=== PATIENT | male | born 1975 | race African-American/Black ===

== ENCOUNTER 2019-06-15 16:08 | Emergency (ER) | payer BC, SELFPAY ==
[2019-06-15 16:35] VITALS: BP 163/88; PULSE 67; RESP 20; TEMP 36.6; O2SAT 100
--- NOTE | 2019-06-15 17:23 | ED.ABDPAIN ---
HPI - Abdominal Pain General Chief Complaint: Back Pain/Injury Stated Complaint: painful urination and side pain Time Seen by Provider: 06/15/19 17:23 Source: patient Mode of arrival: ambulatory Limitations: no limitations History of Present Illness HPI narrative: Ron López is a 43 yo with no PMH complaining of right lower back pain and some difficulty with urination. He states that he has some feeling of burning post urination but was just checked for STDs and so they are negative it is not as concerned about that as he is his lower back pain on the right, seems to be positional in terms of eliciting pain has been going on for weeks Related Data Allergies Allergy/AdvReac Type Severity Reaction Status Date / Time No Known Allergies Allergy Verified 06/15/19 17:29 Review of Systems Review of Systems: Narrative: CONSTITUTIONAL: Denies fever, chills, sweats. EYES: Denies visual changes, redness, discharge. ENT: Denies rhinorrhea, congestion, sore throat, otalgia. CARDIOVASCULAR: Denies chest pain, palpitations, edema. RESPIRATORY: Denies dyspnea, wheezing, cough GASTROINTESTINAL: Denies abdominal pain, nausea, vomiting, diarrhea. GENITOURINARY: mild dysuria, hematuria, abnormal discharge SKIN: Denies rash or itching. MUSCULOSKELETAL: back pain, joint pain, or myalgia. NEUROLOGIC: Denies numbness, or focal weakness. PSYCHIATRIC: Denies anxiety or depression. [facility] Social History Social History (Updated 06/15/19 @ 17:38 by Lissa Sweeney CNP) Smoking status: Never smoker Alcohol intake: current Comments At time of signature, I agree with nursing past medical, surgical, social and family history. There is no relevant family history pertinent to the presenting complaint. Denies any family or prior medical history Exam Narrative: Exam Narrative: GENERAL: This is a well-nourished, well-developed patient, in mild discomfort. HEAD: normocephalic, atraumatic. EYES: Sclera clear/white. Vision is grossly intact. EARS: External ears normal, auditory canals clear and without drainage, TMs normal without perforation. Hearing grossly intact. NOSE: External nose normal with no obvious nasal discharge, nares without redness, no rhinorrhea. THROAT: Mucous membranes moist, posterior pharynx clear. NECK: Neck supple, non-tender without lymphadenopathy, masses or thyromegaly. CARDIOVASCULAR: Regular rate and rhythm without murmurs, gallops, or rubs. RESPIRATORY: Clear to auscultation. Breath sounds equal bilaterally. No wheezes, rales, or rhonchi. GASTROINTESTINAL: Abdomen soft, non-tender, nondistended. Bowel sounds are active. No hepato-splenomegaly, or palpable masses. No guarding. SKIN: warm, intact with no suspicious lesions or rash, good texture and turgor. NEURO: awake, alert, and oriented to person, place and time. There were no obvious focal neurologic abnormalities. Steady gait EXTREMITIES: Normal range of motion. No edema. BACK: tender R lower back- without deformity . Course Course Emergency Course: Given Toradol here Started on prednisone [id number] with primary care physician about trace blood in urine (states was tested last month for STDs and everything was clear; no new partners) Vital Signs Vital signs: Vital Signs Temperature 97.9 F 06/15/19 16:35 Pulse Rate 67 06/15/19 16:35 Respiratory Rate 20 06/15/19 16:35 Blood Pressure 163/88 H 06/15/19 16:35 Pulse Oximetry 100 06/15/19 16:35 Temperature 97.9 F 06/15/19 16:35 Pulse Rate 67 06/15/19 16:35 Respiratory Rate 20 06/15/19 16:35 Blood Pressure 163/88 H 06/15/19 16:35 Pulse Oximetry 100 06/15/19 16:35 MDM - Abdominal Pain Differential Diagnosis Differential diagnosis: Likely other (Skeletal muscle pain) Lab Data Labs: Urine Glucose Negative Reference Range: Negative Urine Bilirubin Negative Reference Range: Negative Urine Ketone Ne
[2019-06-15] MEDS: KETOROLAC (*BKC) 60 MG/2 ML VIAL IM (17:49)
== END 2019-06-15 18:20 | disposition home or self-care (01) ==
PROVIDERS: Emergency Provider Nurse Practitioner
DX: S39.012A Strain of muscle, fascia and tendon of lower back, initial encounter (principal); X58.XXXA Exposure to other specified factors, initial encounter; J45.909 Unspecified asthma, uncomplicated; K21.9 Gastro-esophageal reflux disease without esophagitis
CPT/HCPCS: 81003; 87086; 96372; 99203; G0463; J1885

== ENCOUNTER 2019-06-26 10:33 | Emergency (ER) | payer BC, SELFPAY ==
[2019-06-26 10:50] VITALS: BP 137/82; PULSE 63; RESP 16; TEMP 37.2; O2SAT 99
--- NOTE | 2019-06-26 10:50 | ED.MALEGU ---
HPI - Male Genitourinary General Chief complaint: Urogenital-Male Stated complaint: Constipated/Pos UTI Time Seen by Provider: 06/26/19 10:50 Source: patient and RN notes reviewed History of Present Illness HPI Narrative: Patient is a 43-year-old male that presents the urgent care with complaints of low back pain, burning after urination, and intermittent stomach cramps. Patient states that he believes that the back pain and intermittent stomach cramping is because he is gassy . Patient was seen on June 15 and given steroids for his low back pain. Patient states that that pain has improved . Patient states it is not difficult to bend over or twist anymore like it had been. Patient states that he thinks he needs antibiotics this time because it must be a urinary infection. Patient denies fever, nausea, vomiting. No other acute complaints. No acute distress noted. Patient read the plan of care. Related Data Allergies Allergy/AdvReac Type Severity Reaction Status Date / Time No Known Allergies Allergy Verified 06/26/19 10:58 Review of Systems Review of Systems: Narrative: CONSTITUTIONAL: Denies fever, chills, or sweats. EYES: Denies visual changes, redness, or discharge. ENT: Denies rhinorrhea, congestion, sore throat, or otalgia. CARDIOVASCULAR: Denies chest pain, palpitations, or edema. RESPIRATORY: Denies cough or dyspnea. GASTROINTESTINAL: Reports of intermittent abdominal cramping without nausea, vomiting, diarrhea GENITOURINARY: Reports of dysuria and changes in urinary flow SKIN: Denies rash or itching. MUSCULOSKELETAL: Reports of mild low back pain NEUROLOGIC: Denies headache, numbness, or weakness. All other systems reviewed are negative, except as documented in HPI. PMFSH Social History Social History (Updated 06/15/19 @ 17:38 by Lissa Sweeney CNP) Smoking status: Never smoker Alcohol intake: current Comments At the time of my signature, I reviewed and agree with the nursing past medical, surgical, social, and family history. There is no relevant family history pertinent to the patient complaint. Exam Narrative: Exam Narrative: GENERAL: This is a well-nourished, well-developed patient, in no apparent distress. HEAD: normocephalic, atraumatic. EYES: PERRL. Sclera clear/white. Vision is grossly intact. EARS: External ears normal NOSE: External nose normal with no obvious nasal discharge THROAT: Mucous membranes moist NECK: Neck supple CARDIOVASCULAR: Regular rate and rhythm without murmurs, gallops, or rubs. RESPIRATORY: Clear to auscultation. Breath sounds equal bilaterally. No wheezes, rales, or rhonchi. GASTROINTESTINAL: Abdomen soft, non-tender, nondistended. Bowel sounds are active. SKIN: warm, intact with no suspicious lesions or rash, good texture and turgor. NEURO: awake, alert, and oriented to person, place and time. There were no obvious focal neurologic abnormalities. EXTREMITIES: No clubbing, cyanosis, or edema. BACK: Negative bilateral CVA tenderness Course Vital Signs Vital signs: Vital Signs Temperature 99.0 F 06/26/19 10:50 Pulse Rate 63 06/26/19 10:50 Respiratory Rate 16 06/26/19 10:50 Blood Pressure 137/82 06/26/19 10:50 Pulse Oximetry 99 06/26/19 10:50 Temperature 99.0 F 06/26/19 10:50 Pulse Rate 63 06/26/19 10:50 Respiratory Rate 16 06/26/19 10:50 Blood Pressure 137/82 06/26/19 10:50 Pulse Oximetry 99 06/26/19 10:50 Reviewed MDM - Male Genitourinary MDM Narrative Medical decision making narrative: Reviewed urine analysis results with the patient. He is aware that urine analysis showed trace bacteria and trace blood. I will treat the patient for possible urinary tract infection but also to cover possible epididymitis/prostatitis. Advised the patient to complete the antibiotic regimen as prescribed, unless otherwise directed from PCP to stop the medication. . He should follow-up as scheduled with his PCP on July 02 and let him
== END 2019-06-26 11:29 | disposition home or self-care (01) ==
PROVIDERS: Emergency Provider Nurse Practitioner Family
DX: N39.0 Urinary tract infection, site not specified (principal); J45.909 Unspecified asthma, uncomplicated; K21.9 Gastro-esophageal reflux disease without esophagitis
CPT/HCPCS: 81003; 87086; 99213; G0463

== ENCOUNTER 2019-07-03 08:45 | Outpatient (CLI) | payer BC, SELFPAY ==
--- NOTE | ~2019-07-03 | XR_ITS ---
XR abdomen/kub 1V DATE: 07/03/2019 09:25 INDICATION: Abdominal pain, lower back pain. No injury. TECHNIQUE: AP projection, 2 views COMPARISON: None FINDINGS: The lung bases are clear. Heart size appears normal. No pleural effusion is evident. The bowel gas pattern is nonspecific, with some borderline or minimally dilated gas containing small bowel overlying the mid abdomen. Mild adynamic ileus is suggested. However, no apparent bowel obstruc tion is noted. No visceromegaly or significant abnormal calcification. IMPRESSION: Mild adynamic ileus is suggested. No apparent bowel obstruction Reviewed, dictated and finalized at [facility]. Reviewed, dictated and finalized at location [facility]. T REPAIRER
--- NOTE | ~2019-07-03 | XR_ITS ---
XR lumbar spine 6V w bending DATE: 07/03/2019 09:25 INDICATION: Low back pain without injury TECHNIQUE: AP, lateral, bilateral oblique and coned lateral lumbosacral views. Flexion and extension lateral views. COMPARISON: None FINDINGS: There is normal alignment of the lumbar spine. No fracture or bone destruction, spondylolys is or spondylolisthesis is evident. There is no instability on flexion or extension. There is moderate degenerative disc disease at L2-3, L3-4 and L4-5. The sacroiliac joints are unremarkable. IMPRESSION: Multilevel moderate degenerative disc disease Reviewed, dictated and finalized at location [facility]. [employer]
[2019-07-03 17:20] LABS: Basophils Absolute Auto 0.1 K/mm3 (0.0-0.1); Basophils Percent Auto 1.2 % (0.2-1.2); Eosinophils Absolute Auto 0.3 K/mm3 (0-0.3); Eosinophils Percent Auto 5.2 % (0-4.4); Hematocrit 45.1 % (42.0-52.0); Immature Granulocyte Absolute 0.01 K/mm3 (0.00-0.031); Immature Granulocyte Percent A 0.2 % (0-0.5); Lymphocytes Absolute Auto 2.69 K/mm3 (0.9-3.2); Lymphocytes Percent Auto 46.6 % (18.3-44.2); Mean Corpuscular Hemoglobin 23.8 pg (26-34); Mean Corpuscular Volume 76.7 fl (80-100); Mean Platelet Volume 10.9 fl (7.4-10.4); Monocytes Absolute Auto 0.6 K/mm3 (0.1-0.6); Monocytes Percent Auto 10.1 % (2.6-8.5); Neutrophils Absolute Auto 2.1 K/mm3 (1.3-6.7); Neutrophils Percent Auto 36.7 % (45.5-73.1); Platelet Count Result 312 k/mm3 (150-375); Red Blood Count 5.88 M/mm3 (4.6-6.20); Red Cell Distribution Width 15.8 % (11.5-14.5); White Blood Count 5.8 K/mm3 (4.5-10.0)
[2019-07-03 17:27] LABS: Add Urine Microscopic? NO; Appearance Urine Clear (Clear); Bilirubin Urine Negative (Negative); Blood Urine Negative (Negative); Color Urine Straw (Yellow); Glucose Urine UA Negative (Negative); Ketones Urine Negative (Negative); Leukocyte Esterase Ur Negative LEU/UL (Negative); Nitrate Urine Negative (Negative); Protein Urine Negative (Negative); RBC Urine 0-2 /hpf (0-2); Specific Grav Ur 1.012 (1.001-1.035); Squamous Epithelial Cell Urine Rare /hpf (Few); Urobilinogen Urine Negative mg/dL (<2.0); WBC Urine 0-3 /hpf
[2019-07-03 17:35] LABS: Alanine Aminotransferase 20 U/L (4-50); Albumin Level 4.1 g/dL (3.5-5.1); Alkaline Phosphatase 46 U/L (38-126); Aspartate Amino Transferase 21 U/L (17-59); Bilirubin,Total 0.4 mg/dL (0.2-1.3); Blood Urea Nitrogen 13 mg/dL (9-20); CRP < 0.5 mg/dL (<1.0); Calcium 9.5 mg/dL (8.4-10.2); Carbon Dioxide 22 mmol/L (22-30); Chloride 103 mmol/L (98-107); Estimated Glomerular Filt Rate > 60; Glucose 101 mg/dL (75-110); Potassium 4.2 mmol/L (3.4-5.0); Sodium 139 mmol/L (137-145)
[2019-07-03 17:54] LABS: Vitamin D 25 Hydroxy 24.4 ng/mL
[2019-07-03 18:38] LABS: Folic Acid 10.6 ng/mL (2.76->20)
[2019-07-05 21:43] LABS: Triiodothyronine T3 Free 3.4 pg/mL (2.3-4.2)
[2019-07-07 12:28] LABS: Testosterone Free 89.5 pg/mL (35.0-155.0); Testosterone Total 716 ng/dL (250-1100)
== END 2019-07-03 08:46 | disposition home or self-care (01) ==
PROVIDERS: PCP Family Medicine; Visit Provider Family Medicine
DX: R31.29 Other microscopic hematuria (principal); M54.9 Dorsalgia, unspecified; G89.29 Other chronic pain; M51.36 Other intervertebral disc degeneration, lumbar region; Z12.5 Encounter for screening for malignant neoplasm of prostate; R39.89 Other symptoms and signs involving the genitourinary system; G47.00 Insomnia, unspecified; Z79.899 Other long term (current) drug therapy; F41.9 Anxiety disorder, unspecified; T78.40XA Allergy, unspecified, initial encounter; K21.9 Gastro-esophageal reflux disease without esophagitis; Z72.51 High risk heterosexual behavior
CPT/HCPCS: 36415; 72114; 74018; 80053; 81003; 82306; 82607; 82746; 84402; 84403; 84481; 85025; 86140; 86695; 86696

== ENCOUNTER 2020-05-30 14:44 | Outpatient (CLI) | payer BC, SELFPAY ==
--- NOTE | ~2020-05-30 | XR_ITS ---
EXAMINATION: XR chest 2V DATE: 05/30/2020 15:29 INDICATION: Mid chest knot. TECHNIQUE: Frontal and lateral views of the chest were obtained. COMPARISON: None. FINDINGS: The chest demonstrates clear lungs without pneumonia, pleural effusion, or pneumothorax. Th e heart size is normal. IMPRESSION: 1. No acute cardiopulmonary disease. Reviewed, dictated and finalized at location [facility]. ERCIAL APPRAISER
[2020-05-30 18:48] LABS: Basophils Absolute Auto 0.1 K/mm3 (0.0-0.1); Basophils Percent Auto 1.2 % (0.2-1.2); Eosinophils Absolute Auto 0.3 K/mm3 (0-0.3); Eosinophils Percent Auto 4.4 % (0-4.4); Hemoglobin 14.4 g/dL (14.0-18.0); Immature Granulocyte Absolute 0.01 K/mm3 (0.00-0.031); Immature Granulocyte Percent A 0.1 % (0-0.5); Lymphocytes Absolute Auto 3.88 K/mm3 (0.9-3.2); Lymphocytes Percent Auto 56.6 % (18.3-44.2); Mean Corpuscular Hemoglobin 24.1 pg (26-34); Mean Corpuscular Volume 75.4 fl (80-100); Mean Platelet Volume 9.9 fl (7.4-10.4); Monocytes Absolute Auto 0.6 K/mm3 (0.1-0.6); Monocytes Percent Auto 8.7 % (2.6-8.5); Platelet Count Result 297 k/mm3 (150-375); Red Blood Count 5.97 M/mm3 (4.6-6.20); Red Cell Distribution Width 15.2 % (11.5-14.5); White Blood Count 6.9 K/mm3 (4.5-10.0)
[2020-05-30 18:53] LABS: Add Urine Microscopic? YES; Appearance Urine Clear (Clear); Bacteria Urine Trace /hpf; Bilirubin Urine Negative (Negative); Blood Urine 1+ (Negative); Color Urine Straw (Yellow); Glucose Urine UA Negative (Negative); Ketones Urine Negative (Negative); Leukocyte Esterase Ur Negative LEU/UL (Negative); Mucus Urine Rare /lpf; Nitrate Urine Negative (Negative); Protein Urine Negative (Negative); RBC Urine 0-2 /hpf (0-2); Squamous Epithelial Cell Urine Rare /hpf (Few); Urobilinogen Urine Negative mg/dL (<2.0); WBC Urine 0-3 /hpf
[2020-05-30 18:56] LABS: Cholesterol 197 mg/dL (0-200); HDL Direct 64 mg/dL; Triglycerides 103 mg/dL (<150)
[2020-05-30 19:08] LABS: LDL Cholesterol Direct 109 mg/dL
[2020-05-30 19:15] LABS: Vitamin D 25 Hydroxy 34.4 ng/mL
[2020-05-30 19:28] LABS: Prostate Specific Antigen 0.7 ng/mL (< OR = 4.0)
[2020-05-30 19:41] LABS: HIV 1/2 Ab P24 Ag 6.76
[2020-05-30 19:49] LABS: HIV 1/2 Ab P24 Ag Result Reactive (Negative)
[2020-05-31 11:34] LABS: Rapid Plasma Reagin Non-Reactive (NonReactive)
[2020-06-02 12:20] LABS: HIVc Retest 1 7.17; HIVc Retest 2 6.17
[2020-06-02 14:08] LABS: HIV 1 2 Ag Ab 4th Gen w Rflxs Non-reactive (Non-reactive)
== END 2020-05-30 14:45 | disposition home or self-care (01) ==
LOC: ANHBWCLAB 14:47
PROVIDERS: PCP Family Medicine; Visit Provider Family Medicine
DX: F41.9 Anxiety disorder, unspecified (principal); G47.00 Insomnia, unspecified; G89.29 Other chronic pain; K21.9 Gastro-esophageal reflux disease without esophagitis; M54.9 Dorsalgia, unspecified; R31.29 Other microscopic hematuria; R39.89 Other symptoms and signs involving the genitourinary system; T78.40XA Allergy, unspecified, initial encounter; Z12.5 Encounter for screening for malignant neoplasm of prostate; Z72.51 High risk heterosexual behavior; Z79.899 Other long term (current) drug therapy; Z82.62 Family history of osteoporosis; G47.19 Other hypersomnia; R06.00 Dyspnea, unspecified; R30.0 Dysuria; R79.89 Other specified abnormal findings of blood chemistry
CPT/HCPCS: 36415; 71046; 80061; 81001; 82306; 84153; 85025; 86592; 86703; 87389; 87491; 87591; G0103; G0432